=== PATIENT | male | born 1985 | race Caucasian/White ===

== ENCOUNTER 2018-11-07 19:48 | Emergency (ER) | payer SELFPAY ==
[~2018-11-07] VITALS: Ht 167.6 cm; Wt 80.7 kg
[2018-11-07 20:28] VITALS: Ht 167.6 cm; Wt 80.7 kg
[2018-11-07 23:01] VITALS: BP 127/77
== END 2018-11-07 23:01 | disposition home or self-care (01) ==
LOC: ED 19:48
DX: L03.116 Cellulitis of left lower limb (principal); F17.210 Nicotine dependence, cigarettes, uncomplicated
CPT/HCPCS: J0696